=== PATIENT | male | born 1955 | race American Indian/Alaskan Native ===

== ENCOUNTER 2020-06-07 06:37 | Day surgery (SDC) | payer OTHER ==
[2020-06-07] MEDS ORDERED: ASPIRIN EC 325 MG TAB PO ONE (07:29)
[2020-06-07 07:51] LABS: Basophils % (Auto) 0.7 % (0.0-1.8); Eosinophils # (Auto) 0.2 K/mm3 (0.0-0.4); Eosinophils % (Auto) 4.6 % (0.0-4.3); Hematocrit 41.9 % (35.5-45.6); Hemoglobin 13.8 gm/dl (11.8-15.2); Lymphocytes # (Auto) 1.5 K/mm3 (1.2-5.4); Lymphocytes % (Auto) 31.3 % (13.4-35.0); Mean Corpuscular HGB Conc 33 % (32-34); Mean Corpuscular Volume 88 fl (84-94); Monocytes # (Auto) 0.5 K/mm3 (0.0-0.8); Platelet Count 152 K/mm3 (140-440); Red Blood Count 4.77 M/mm3 (3.65-5.03); Red Cell Distribution Width 14.7 % (13.2-15.2)
[2020-06-07] MEDS ORDERED: SODIUM CHLORIDE 0.9% 500 ML 500 ML IV SCH (08:00)
[2020-06-07 08:02] LABS: INR 1.02 (0.87-1.13)
[2020-06-07 08:03] LABS: Partial Thromboplastin Time 31.7 Sec. (24.2-36.6)
[2020-06-07 08:07] LABS: BUN/Creatinine Ratio 19; Blood Urea Nitrogen 17 mg/dL (9-20); Calcium 9.5 mg/dL (8.4-10.2); Hemolysis Index 2
[2020-06-07] MEDS ORDERED: HEPARIN/NS 5000 UNIT/500ML 1,000 ML IR ONE (08:39)
[2020-06-07] MEDS ORDERED: LIDOCAINE (2%) 20 MG/1 ML VIAL 20 ML MDV INFILTRATI ONE (08:40)
[2020-06-07] MEDS: fentaNYL 100 MCG/2 ML INJ ONE ×2 (09:54→10:01)
[2020-06-07] MEDS: MIDAZOLAM 2 MG/2 ML INJ ONE ×2 (09:54→10:01)
[2020-06-07] MEDS: HEPARIN 10,000 UNITS/10 ML VIAL ONE ×2 (09:55→10:04)
[2020-06-07] MEDS: VERAPAMIL 5 MG/2 ML INJ ONE ×2 (09:55→10:04)
[2020-06-07] MEDS: LIDOCAINE (2%) 20 MG/1 ML VIAL 20 ML MDV INFILTRATI ONE ×2 (09:55→10:02)
[2020-06-07] MEDS: NITROGLYCERIN SYRINGE 3 ML ONE ×2 (09:56→10:04)
[2020-06-07] MEDS ORDERED: SODIUM CHLORIDE 0.9% 1000 ML 1,000 ML IV SCH (10:30)
--- NOTE | 2020-06-07 10:33 | Discharge Summary ---
Short Stay Discharge Plan Activity: advance as tolerated Weight Bearing Status: Full Weight Bearing Diet: low fat, low cholesterol, low salt Wound: keep clean and dry Special Instructions: no heavy lifting (3 days) Follow up with: KAT WALSH MD [Staff Physician] - 7 Days
--- NOTE | 2020-06-07 10:52 | Cardiac Catherization Report ---
REASON FOR PROCEDURE: Abnormal thallium stress test, preoperative right elbow olecranon cyst excision. PROCEDURES: 1. Left heart catheterization. 2. Selective left and right coronary angiography. 3. Left ventricular angiography. 4. Sedation time start 10:01, end 10:19. I was present for the entire procedure and supervised the moderate sedation protocol. DESCRIPTION OF PROCEDURE: The patient was prepped and draped in a sterile fashion after informed consent. The right radial cath site was prepped and draped after a negative Nikolai's test. The right radial artery was entered using Seldinger technique followed by placement of a 6-Telugu hydrophilic sheath. Routine radial cocktail was administered via the sheath. Selective left and right coronary angiography was performed using #3.5 left Pedro and #4 right Pedro. A pigtail catheter was used for left ventricular angiography. Catheters were removed, sheath removed, and hemostasis achieved using a TR band. The patient was returned to the postprocedure unit in stable condition. There were no complications. FINDINGS: HEMODYNAMICS: Left ventricular end-diastolic pressure was 18, following coronary angiography. Ascending aortic pressure was 127/85. There was no significant pressure gradient on pullback across the aortic valve. CORONARY ANGIOGRAPHY: The left main coronary artery was free of significant disease. There was a 50-60% stenosis of the proximal segment of the small caliber first diagonal branch of the LAD, there were also mild luminal irregularities of the proximal LAD trunk, otherwise the LAD was free of significant disease. The circumflex artery contained mild atherosclerosis of his distal segment, and otherwise also free of significant obstructive disease. The right coronary artery was dominant, and angiographically normal. Left ventricular systolic function was within normal limits, ejection fraction 50-55%. CONCLUSION: 1. 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 2. Well preserved left ventricular systolic function, ejection fraction 50-55%. RECOMMENDATION: Risk factor modification and medical therapy. JOB# [id number] CA/NTS
[2020-06-07] MEDS ORDERED: traMADol 50 MG TAB PO PRN (11:00)
[2020-06-07] MEDS ORDERED: HYDROcodone/ACETAMINOPHEN 5-325 MG TAB PO PRN (11:00)
[2020-06-07 13:33] VITALS: BP 156/85
== END 2020-06-07 14:00 | disposition home or self-care (01) ==
LOC: CATHLABREC 06:37
PROVIDERS: ATTEND Internal Medicine Cardiovascular Disease
DX: R94.39 Abnormal result of other cardiovascular function study (principal); I25.10 Atherosclerotic heart disease of native coronary artery without angina pectoris; H40.9 Unspecified glaucoma; E78.00 Pure hypercholesterolemia, unspecified; Z98.890 Other specified postprocedural states; Z79.899 Other long term (current) drug therapy
CPT/HCPCS: 36415; 80048; 85025; 85610; 85730; 93005; 93458; 99156; C1894; J1644; J2250; J3010; J7040; Q9967

== ENCOUNTER 2020-08-01 07:40 | Outpatient (CLI) | payer MEDICAID, MEDICARE ==
--- NOTE | 2020-08-01 09:05 | Ultrasound Report ---
LIMITED RUQ ABDOMINAL ULTRASOUND INDICATION / CLINICAL INFORMATION: ABNORMAL LFTs. COMPARISON: No relevant prior imaging study available. FINDINGS: PANCREAS: Visualized portions of the pancreas are within normal limits. ABDOMINAL AORTA: No significant abnormality. IVC: No significant abnormality. LIVER: The liver measures 16.1 cm in length. Mild diffuse increased and coarsened echotexture. PORTAL VEIN: Normal hepatopedal blood flow in the main portal vein. GALLBLADDER: Sludge in the gallbladder. No cholelithiasis, gallbladder wall thickening, or pericholec ystic fluid. Negative sonographic Veras sign. BILE DUCTS: No significant abnormality. Common bile duct measures 6 mm. RIGHT KIDNEY: No significant abnormality visualized. FREE FLUID: None. ADDITIONAL FINDINGS: None. IMPRESSION: 1. Diffuse increased and coarsened hepatic echotexture, which may reflect fatty infiltration or chron ic liver disease. 2. Gallbladder sludge. No evidence of cholecystitis. Signer Name: Dane Michael MD Signed: 08/01/2020 9:01 AM Workstation Name: [id number]
== END 2020-08-01 07:41 | disposition home or self-care (01) ==
LOC: US 07:40
PROVIDERS: ATTEND Internal Medicine Gastroenterology
DX: R94.5 Abnormal results of liver function studies (principal); K76.9 Liver disease, unspecified
CPT/HCPCS: 76705